=== PATIENT | female | born 1995 | race African-American/Black ===

== ENCOUNTER 2016-11-13 18:32 | Emergency (ER) | payer OTHER ==
--- NOTE | ~2016-11-13 | CR127 ---
[facility] A Service of [facility] & [facility] RADIOLOGY TEXT RESULTS PATIENT: DANYA ADRIAN LOCATION: [place] : [birth year] UNIT #: [id number] AGE: [address]: Sonia Mckeon APRN SEX: F ORDER DR: [id number] [facility] [address] [place], [place] [address] [id number] E MR#: [id number] Acc #: [id number] NAME: DANYA ADRIAN : 1995 SEX: F STUDY DATE/TIME: 11/13/2016 19:21 UNIT: [facility] ROOM: STUDY DESCRIPTION: CR Foot Complete Min 3 View Rt Attending Physician: Sonia Mckeon A.P.R.N. Ordering Physician: Giovanni Rubio ([facility]) Primary Care Physician: Alicia Iraheta M.D. MEDICAL IMAGING REPORT This report is preliminary unless electronic signature is present EXAM Three views of the right foot. DATE 11/13/2016 HISTORY Right foot and ankle pain and numbness since 11/13/2016, twisted ankle. COMPARISON None. FINDINGS The tarsal, metatarsal, and phalangeal elements are all anatomically normal in position and alignment. There are no articular defects. No fractures or radiopaque foreign bodies in the soft tissues are apparent. IMPRESSION Normal 3 views of the right foot. Dictated by... Mi Peguero M.D. THIS IS AN ELECTRONICALLY VERIFIED REPORT Mi Peguero M.D. at 11/14/2016 10:40 AM [facility]/dominick TD: 11/14/2016 02:20 JOB #: [id number] MEDICAL IMAGING REPORT Page 1 of 1 COPY
--- NOTE | ~2016-11-13 | CR21 ---
[facility] A Service of [facility] & [facility] RADIOLOGY TEXT RESULTS PATIENT: DANYA ADRIAN LOCATION: [facility] : [birth year] UNIT #: [id number] AGE: [address]: Sonia Mckeon APRN SEX: F ORDER DR: [id number] [facility] [address] [place], [place] [address] [id number] E MR#: [id number] Acc #: [id number] NAME: DANYA ADRIAN : 1995 SEX: F STUDY DATE/TIME: 11/13/2016 19:23 UNIT: [facility] ROOM: STUDY DESCRIPTION: CR Ankle Min 3 Views Rt Attending Physician: Sonia Mckeon A.P.R.N. Ordering Physician: Giovanni Rubio Primary Care Physician: Alicia Iraheta M.D. MEDICAL IMAGING REPORT This report is preliminary unless electronic signature is present EXAM Three views right ankle. DATE: 11/13/2016 HISTORY Right foot and ankle pain and numbness since 11/13/2016, twisted ankle. COMPARISON None. FINDINGS AP, lateral, and oblique projections of the ankle show satisfactory integrity of the joint mortise with a smooth articular surface. There is no identifiable fracture, dislocation, or radiopaque foreign body. IMPRESSION Normal ankle. Dictated by... iM Peguero M.D. THIS IS AN ELECTRONICALLY VERIFIED REPORT Mi Peguero M.D. at 11/14/2016 10:40 AM [facility]/marina TD: 11/14/2016 02:40 JOB #: [id number] MEDICAL IMAGING REPORT Page 1 of 1 COPY
[~2016-11-13 18:32] MED LIST: IBUPROFEN PO; NO MEDICATIONS; ZITHROMAX PO
== END 2016-11-13 20:25 | disposition home or self-care (01) ==
LOC: CED 18:32 → CFTX 18:32
DX: S93.401A Sprain of unspecified ligament of right ankle, initial encounter (principal); K21.9 Gastro-esophageal reflux disease without esophagitis; X50.1XXA Overexertion from prolonged static or awkward postures, initial encounter; Y92.89 Other specified places as the place of occurrence of the external cause
CPT/HCPCS: 29405; 73610; 73630; 84703; 99283

== ENCOUNTER 2016-11-15 07:31 | Emergency (ER) | payer OTHER | END 2016-11-15 08:26 | disposition home or self-care (01) | LOC: CED 07:31 | DX: S93.401A Sprain of unspecified ligament of right ankle, initial encounter (principal); K21.9 Gastro-esophageal reflux disease without esophagitis; X50.1XXA Overexertion from prolonged static or awkward postures, initial encounter; Y92.89 Other specified places as the place of occurrence of the external cause | CPT/HCPCS: 99283 ==